=== PATIENT | male | born 1950 | race Caucasian/White ===

== ENCOUNTER → 2021-04-20 13:44 | Outpatient (CLI) | payer OTHER, SELFPAY | PROVIDERS: Family Provider Family Medicine; PCP Family Medicine; Visit Provider Nurse Practitioner Family | DX: L03.818 Cellulitis of other sites (principal); L02.818 Cutaneous abscess of other sites | CPT/HCPCS: 87070; 87075; 87077; 87147; 87186; 87205 ==

== ENCOUNTER 2021-04-21 01:03 | Emergency (ER) | payer OTHER, SELFPAY ==
[2021-04-21 01:05] VITALS: BP 216/115; PULSE 88; RESP 17; TEMP 36.8; O2SAT 99; BMI 26.2
[2021-04-21] MEDS: HYDROCODONE/ACET 5/325 PREPACK 1 BOTTLE MISC (01:29)
--- NOTE | 2021-04-21 01:50 | ED.SKABFB ---
HPI - Skin/Abscess/Foreign Bdy General Chief complaint: Skin/Abscess/Foreign Body Stated complaint: finger pain Time Seen by Provider: 04/21/21 01:05 Source: patient Mode of arrival: Ambulatory Limitations: no limitations History of Present Illness HPI narrative: 70M nonsmoker with history of hypertension presents with his in the chief complaint of worsening pain and swelling of his left middle finger. He was seen earlier today at the walk-in clinic for evaluation of a painful swollen left middle finger in the absence of injury and there was attempt to drain an abscess on the dorsal aspect of the finger just proximal to the nail bed. He was then put on Keflex and encouraged to follow up. Over the night he complains he has had increasing pain and swelling and is hoping to get some pain medications. He denies any fever chills. He denies any recent injury but states a few years ago she was hiking and thinks he got a thorn from a plant stuck in his finger. Related Data Home Medications Medication Instructions Recorded Confirmed ibuprofen 400 mg tablet PRN #0 07/24/16 04/20/21 Previous Rx's Medication Instructions Recorded lisinopril 20 mg tablet 20 mg PO QDAY #60 tab 08/13/16 lisinopril 40 mg tablet 40 mg PO QDAY #30 tab 08/14/16 cephalexin 500 mg capsule 500 mg PO QID 10 Days #40 cap 04/20/21 Allergies Allergy/AdvReac Type Severity Reaction Status Date / Time No Known Drug Allergies Allergy Unverified 04/20/21 12:32 Review of Systems Review of Systems Narrative: GENERAL: Denies chills, fatigue, malaise, fever, sweats. HEENT: Denies sinus pain, ear pain, sore throat, difficulty swallowing, dizziness. RESPIRATORY: Denies dyspnea, cough, wheezing, hemoptysis, sputum. CARDIOVASCULAR: Denies chest pain, palpitations, orthopnea, edema, GASTROINTESTINAL: Denies nausea, vomiting, abdominal pain, diarrhea, constipation, melena. : Denies dysuria, frequency, incontinence, hematuria, urinary retention. MUSCULOSKELETAL: See HPI SKIN: See HP NEUROLOGIC: Denies weakness, headache, numbness, change in speech, confusion, seizures, incoordination. PSYCHIATRIC: No concerning psychosocial issues. 12 point review of systems is negative except for those stated above Patient History Social History Smoking Status: Never smoker Smoking Status: Never smoker Substance Use Type: does not use Exam Narrative Exam Narrative: GEN: AOx3 and in mild distress EYES: Pupils are equal, round, and reactive to light and accommodation. Extraoccular muscles are intact bilaterally. There is no subconjunctival hemorrhage or exudate. CHEST: Lungs are clear to auscultation bilaterally and free of wheezes, rales, or rhonchi. Heart rate is regular rhythm, there are no murmurs, clicks, rubs, or gallops. There is no chest wall tenderness. ABD: Abdomen is soft and nontender. There is no guarding or rebound. Bowel sounds are normal in all 4 quadrants. There is no mass or organomegaly. EXT: Left middle finger with fusiform swelling and erythema most tender on the dorsal surface just proximal to the nail fold where there is evidence of a recent attempt at incision and drainage, there is no fluctuance, it is warm and sensation is intact. He does have a slightly held in flexion but denies pain on palpation of the flexor surface. Full painless ROM of all extremities with no loss of sensation or strength. SKIN: Warm, pink, and dry. No erythema or rash Initial Vital Signs Initial Vital Signs: Vital Signs Temperature 98.2 F 04/21/21 01:05 Pulse Rate 88 04/21/21 01:05 Respiratory Rate 17 04/21/21 01:05 Blood Pressure 216/115 H 04/21/21 01:05 Pulse Oximetry 99 04/21/21 01:05 Course Orders Ordered: Discontinued Medications Hydrocodone Bitart/Acetaminophen (Hydrocodone/Acet 5/325 Prepack) 1 bottle MISC SEEINSTR ONE Stop: 04/21/21 01:26 Last Admin: 04/21/21 01:29 Dose: 1 bottle Documented by: VIOLETTA Vital Signs Vital signs: Vital Signs - 8 hr 04/21/21 01:05 Temperature 98.2 F Pulse Rate 88 Respiratory Rate 17 Blood Pressure 216/115 H Pulse Oximetry 99 MDM - Skin/Abscess/Foreign Bdy MDM Narrative Medical decision making narrative: Patient's exam is concerning for early abscess, deep space infection or possibly early tenosynovitis. I made this very clear to the patient but he stated he would not wait around until the morning. I discussed with him the potential of worsening symptoms including bone infection, sepsis and loss of his hand or worse. He states he will come back later but does not want of sit here until morning. He understands he may return immediately for any change in opinion. Discharge Plan Departure Patient Disposition: Home Clinical Impression: Infection of finger Instructions: DI for Wound Infection Activity Restrictions/Additional Instructions: *You have been diagnosed with [left middle finger cellulitis, small abscess and possible early tenosynovitis *What to do: *Please continue to take your regular medications as directed. * as we discussed, have a concern that the infection that is developing involves the deep space of your finger and might very well need investigation in the operating room. Please return later today for a repeat evaluation or at any time sooner if you would like. *Return to Emergency Department if you should have any new, worsening or concerning symptoms, such as [fever greater than 101 F, shaking chills, worsening pain, persistent vomiting or other bothersome symptoms] Prescriptions: No Action cephalexin 500 mg capsule 500 mg PO QID 10 Days Qty: 40 RF: 0 ibuprofen 400 MG tablet PRNQty: 0 RF: 0 lisinopril 20 MG tablet 20 mg PO QDAY Qty: 60 RF: 0 lisinopril 40 MG tablet 40 mg PO QDAY Qty: 30 RF: 0 Referrals: Amador Larsen MD [Physician] -
== END 2021-04-21 01:38 | disposition home or self-care (01) ==
PROVIDERS: Emergency Provider Emergency Medicine; Family Provider Family Medicine
DX: L08.9 Local infection of the skin and subcutaneous tissue, unspecified (principal)
CPT/HCPCS: 99281; 99283

== ENCOUNTER → 2021-07-25 16:21 | Outpatient (CLI) | payer OTHER, SELFPAY ==
[2021-07-25 17:11] LABS: Hemoglobin A1C% w Est Avg Glu 8.3 % (4.0-6.0)
[2021-07-25 17:59] LABS: BUN Creatinine Ratio 13.3 (6-22); Blood Urea Nitrogen 13 mg/dL (9-20); Calcium 9.8 mg/dL (8.4-10.2); Carbon Dioxide 30 mmol/L (22-32); Chloride 102 mmol/L (98-107); Estimated Glomerular Filt Rate > 60.0 mL/min (>60); Glucose 186 mg/dL (80-110); HEMOLYSIS 21 (0-50); Potassium 4.4 mmol/L (3.4-5.1); Sodium 138 mmol/L (137-145)
[2021-07-25 18:30] LABS: TSH w/ Reflex to FT4 1.35 uIU/mL (0.47-4.68)
== END ==
PROVIDERS: Family Provider Family Medicine; PCP Internal Medicine; Referring Provider Internal Medicine; Visit Provider Internal Medicine
DX: E11.9 Type 2 diabetes mellitus without complications (principal); I10 Essential (primary) hypertension
CPT/HCPCS: 36415; 80048; 83036; 84443

== ENCOUNTER 2025-01-11 13:00 | Emergency (ER) | payer OTHER, SELFPAY ==
--- NOTE | 2025-01-11 13:39 | PC.NURSE ---
called for patient at 1320, no answer, and not answer now.
== END 2025-01-11 14:00 | disposition left against medical advice (07) ==
PROVIDERS: Emergency Provider Emergency Medicine; Family Provider Family Medicine